=== PATIENT | female | born 1945 | race Caucasian/White ===

== ENCOUNTER 2016-10-15 10:53 | Emergency (ER) | payer MEDICARE, OTHER ==
[~2016-10-15 10:53] MED LIST: ASTEPRO205.5 MCG/ NS; CEFDINIR300 M1 PO; FLOVENT HFA1 PUF1 INH; FLUTICASONE PRO16 G1 NS; HYDROCHLOROTHIA25 M1 PO; LEVOTHYROXINE75 MC3 PO; MIRALAX17 G2 PO; NORCO 5-325 TA1 EACH PO; NORVASC5 M2 PO; POTASSIUM CHLO10 ME1 PO; PREDNISONE10 M1 PO; PROAIR HFA8.5 GM IH; SIMVASTATIN40 M1 PO; XANAX0.25 M1 PO; ZOFRAN ODT8 MG PO
[2016-10-15] MEDS ORDERED: NEURONTIN300 M1 PO (11:20)
[2016-10-15] MEDS ORDERED: CYANOCOBAL1000 MCG/3 IM (11:21)
[2016-10-15] MEDS ORDERED: NORVASC5 M2 PO (11:21)
[2016-10-15] MEDS ORDERED: ATORVASTATIN CA10 M1 PO (11:22)
[2016-10-15] MEDS ORDERED: PROZAC40 M1 PO (11:22)
[2016-10-15] MEDS ORDERED: POTASSIUM CHLO10 ME2 PO (11:23)
[2016-10-15] MEDS ORDERED: SYNTHROID75 MC1 PO (11:23)
[2016-10-15] MEDS ORDERED: REQUIP4 M1 PO (11:23)
[2016-10-15] MEDS ORDERED: HYDROCHLOROTHIA25 M1 PO (11:23)
[2016-10-15] MEDS ORDERED: FLOVENT HFA1 PUFF INH (11:24)
[2016-10-15] MEDS ORDERED: PROTONIX40 M2 PO (11:24)
[2016-10-15] MEDS ORDERED: PROAIR HFA8.5 GM INH (11:25)
== END 2016-10-15 13:16 ==
LOC: EDMED 10:53
PROC: 0HQGXZZ Repair Left Hand Skin, External Approach (ICD-10-PCS; principal; 2016-10-15)
DX: S62.637B Displaced fracture of distal phalanx of left little finger, initial encounter for open fracture (principal); S61.215A Laceration without foreign body of left ring finger without damage to nail, initial encounter; J43.9 Emphysema, unspecified; I10 Essential (primary) hypertension; E03.9 Hypothyroidism, unspecified; K21.9 Gastro-esophageal reflux disease without esophagitis; Z85.3 Personal history of malignant neoplasm of breast; Z79.51 Long term (current) use of inhaled steroids; Z79.890 Hormone replacement therapy; Z79.899 Other long term (current) drug therapy; W29.0XXA Contact with powered kitchen appliance, initial encounter; Y93.G3 Activity, cooking and baking; Y92.010 Kitchen of single-family (private) house as the place of occurrence of the external cause; Y99.8 Other external cause status